=== PATIENT | female | born 1995 | race Caucasian/White ===

== ENCOUNTER 2019-02-20 21:50 | Emergency (ER) | payer OTHER ==
[2019-02-21] MEDS ORDERED: PROMETHAZINE/DM (CUP) PO (01:00)
[2019-02-21] MEDS: PROMETHAZINE/DM (CUP) PO (01:35)
== END 2019-02-21 01:41 | disposition home or self-care (01) ==
LOC: FTE 21:50
DX: J20.9 Acute bronchitis, unspecified (principal)
CPT/HCPCS: 99283; Z7502

== ENCOUNTER 2019-05-23 12:47 | Emergency (ER) | payer OTHER ==
[2019-05-23] MEDS: SOD CHLORIDE 0.9% 1,000 ML IV (15:26)
[2019-05-23] MEDS: ONDANSETRON 4 MG INJ IV (15:26)
[2019-05-23] MEDS: MECLIZINE 12.5 MG TAB PO (15:26)
[2019-05-23 15:31] LABS: ADD MAN DIFF? NO
[2019-05-23 15:34] LABS: WHITE BLOOD COUNT 6.4 10^3/ul (4.8-10.8)
[2019-05-23 15:34] LABS: BASOPHILS % 0.6 % (0.0-2.0); EOSINOPHILS # 0.1 10^3/ul (0.0-0.5); EOSINOPHILS % 0.9 % (0.0-7.0); HEMATOCRIT 42.4 % (37.0-47.0); HEMOGLOBIN 14.3 g/dl (12.0-16.0); LYMPHOCYTES # 1.6 10^3/ul (0.8-2.9); LYMPHOCYTES % 24.4 % (15.0-51.0); MEAN CORPUSCULAR HEMOGLOBIN 31.6 pg (29.0-33.0); MEAN CORPUSCULAR HGB CONC 33.7 g/dl (32.0-37.0); MEAN CORPUSCULAR VOLUME 93.8 fl (82.0-101.0); MEAN PLATELET VOLUME 9.8 fl (7.4-10.4); MONOCYTE # 0.3 10^3/ul (0.3-0.9); NEUTROPHIL # 4.4 10^3/ul (1.6-7.5); NEUTROPHILS % 68.9 % (39.0-77.0); PLATELET COUNT 211 10^3/UL (140-415); RED BLOOD COUNT 4.52 10^6/ul (4.20-5.40); RED CELL DISTRIBUTION WIDTH 11.6 % (11.5-14.5)
[2019-05-23 15:39] LABS: ADD UMIC YES; UR ASCORBIC ACID NEGATIVE (NEGATIVE); UR BILIRUBIN (Dip) NEGATIVE (NEGATIVE); UR BLOOD (Dip) 1+ mg/dL (NEGATIVE); UR CLARITY CLEAR (CLEAR); UR COLOR YELLOW (YELLOW); UR GLUCOSE (Dip) NEGATIVE (NEGATIVE); UR KETONES (Dip) TRACE mg/dL (NEGATIVE); UR LEUKOCYTE ESTERASE (Dip) NEGATIVE Leu/ul (NEGATIVE); UR NITRITE (Dip) NEGATIVE (NEGATIVE); UR RBC 1 /HPF (0-5); UR SPECIFIC GRAVITY (Dip) 1.008 (1.003-1.030); UR SQUAMOUS EPITHELIAL CELL FEW /HPF (FEW); UR TOTAL PROTEIN (Dip) NEGATIVE (NEGATIVE); UR UROBILINOGEN (Dip) NEGATIVE (NEGATIVE); UR WBC 1 /HPF (0-5)
[2019-05-23 15:50] LABS: ANION GAP 8 (5-13); BLOOD UREA NITROGEN 10 mg/dl (7-20); CALCIUM 9.4 mg/dl (8.4-10.2); CARBON DIOXIDE 28 mmol/L (21-31); CHLORIDE 106 mmol/L (97-110); CREATININE 0.53 mg/dl (0.44-1.00); Estimated GFR > 60 mL/min (>60); GLUCOSE 95 mg/dl (70-220); POTASSIUM 3.7 mmol/L (3.5-5.1); SODIUM 142 mmol/L (135-144)
[2019-05-23 15:53] LABS: INR 0.97
[2019-05-23 15:54] LABS: PARTIAL THROMBOPLASTIN TIME 28.5 Sec (23.0-35.0)
== END 2019-05-23 16:39 | disposition home or self-care (01) ==
LOC: FTE 12:47
DX: H81.10 Benign paroxysmal vertigo, unspecified ear (principal)
CPT/HCPCS: 36415; 80048; 81001; 81025; 85025; 85610; 85730; 93005; 96374; 99284-25